=== PATIENT | male | born 1990 | race Caucasian/White ===

== ENCOUNTER 2016-12-16 09:11 | Emergency (ER) | payer OTHER ==
[~2016-12-16] VITALS: Ht 167.6 cm; Wt 70.3 kg
[2016-12-16 09:17] VITALS: BP 107/53
--- NOTE | 2016-12-16 09:20 | NUR ---
PT AMBULATED TO BED 4
--- NOTE | 2016-12-16 09:26 | NUR ---
PATIENT PRESENTS TO ED WITH LLQ ABD PAIN AND LEFT TESTICAL PAIN X 40 MIN WITH VOMITING X 1. PT STATES IT STARTED WHEN HE WOKE UP THIS MORNING .PAIN IS CONSTANT AND WORSENS WHEN HE LIE DOWN.SKIN IS PINK/WARM/DRY; AAOX4 WITH EVEN AND STEADY GAIT; LUNGS CLEAR BL; HR EVEN AND REGULAR; PT DENIES ANY FEVER, CP, SOB, OR COUGH AT THIS TIME; PATIENT STATES PAIN OF 10/10 AT THIS TIME;PATIENT POSITIONED FOR COMFORT; HOB ELEVATED; BEDRAILS UP X2; BED DOWN. ER MD AT BEDSIDE.
[2016-12-16] MEDS ORDERED: NACL 0.9% 1,000 ML IV SCH (09:31)
[2016-12-16] MEDS ORDERED: KETOROLAC 30 MG/ML VIAL IVP ONE (09:35)
[2016-12-16] MEDS ORDERED: ONDANSETRON 4 MG/2 ML VIAL IVP ONE (09:35)
--- NOTE | 2016-12-16 09:49 | NUR ---
PT AAOX4. NO ACUTE DISTRESS NOTED. PT WENT TO CT SCAN. ACCOMPANIED BY BUN ICER.
[2016-12-16] MEDS ORDERED: MORPHINE SULFATE 4 MG/ML SYR IVP ONE ×2 (10:05→10:55)
--- NOTE | 2016-12-16 10:05 | NUR ---
AAO, COPPERATIVE PT BACK FROM CT SCAN OF THE ABDOMEN VIA JOHNRLEWIS, STILL C/O CONSTANT, SHARP PAIN 06/17 ON THE ABDOMEN, DR LANGSTON NOTIFIED, ORDERING MORPHINE
--- NOTE | 2016-12-16 11:02 | NUR ---
AAO PT STILL C/O PAIN 06/17, DR LANGSTON NOTIFIED, ORDERED 2ND DOSE OF 4MG/ML MORPINE TO BE GIVEN IV
[2016-12-16 11:45] VITALS: BP 134/73
--- NOTE | 2016-12-16 11:45 | NUR ---
Patient discharged with v/s stable. Written and verbal after care instructions given and explained. Patient alert, oriented and verbalized understanding of instructions. Ambulatory with steady gait. All questions addressed prior to discharge. ID band removed. Patient advised to follow up with PMD. Rx of ZOFRAN, FLOMAX, MOTRIN, NORCO given. Patient educated on indication of medication including possible reaction and side effects. Opportunity to ask questions provided and answered.
== END 2016-12-16 11:45 | disposition home or self-care (01) ==
LOC: MED 09:11
DX: N20.0 Calculus of kidney (principal)
CPT/HCPCS: 36415; 74176; 80053; 81001; 83690; 85025; 96361; 96374; 96375; 96376; 99285; J1885; J2270; J2405; J7030

== ENCOUNTER 2016-12-17 18:56 | Emergency (ER) | payer OTHER ==
[~2016-12-17] VITALS: Ht 167.6 cm; Wt 70.3 kg
[2016-12-17 18:59] VITALS: BP 150/96
--- NOTE | 2016-12-17 19:06 | NUR ---
Patient to bed 08.
[2016-12-17] MEDS ORDERED: NACL 0.9% 1,000 ML IV ONE ×2 (19:21→20:55)
--- NOTE | 2016-12-17 19:23 | NUR ---
PT BIB MOTHER TO ED WITH C/O LEFT SIDED FLANK PAIN X1 DAY. PT WAS SEEN IN ED YESTERDAY. PT STATES NO MED HX. DENIES V/D; SKIN IS PINK/WARM/DRY; AAOX4 WITH EVEN AND STEADY GAIT; LUNGS CLEAR BL; HR EVEN AND REGULAR; PT DENIES ANY FEVER, CP, SOB, OR COUGH AT THIS TIME; PATIENT STATES PAIN OF 8/10 AT THIS TIME; VSS; PATIENT POSITIONED FOR COMFORT; HOB ELEVATED; BEDRAILS UP X2; BED DOWN. ER MD MADE AWARE OF PT STATUS.
[2016-12-17] MEDS ORDERED: KETOROLAC 30 MG/ML VIAL IVP ONE ×2 (19:25→22:05)
[2016-12-17] MEDS ORDERED: ONDANSETRON 4 MG/2 ML VIAL IVP ONE (19:25)
[2016-12-17] MEDS ORDERED: MORPHINE SULFATE 4 MG/ML SYR IVP ONE (20:55)
--- NOTE | 2016-12-17 21:40 | NUR ---
PT RESTING IN BED. NO SOB NOTED AT THIS TIME
[2016-12-17] MEDS ORDERED: PHENAZOPYRIDINE 100 MG TAB PO ONE (22:05)
[2016-12-17 22:30] VITALS: BP 128/84
--- NOTE | 2016-12-17 22:30 | NUR ---
Patient discharged with v/s stable. Written and verbal after care instructions given and explained. Patient alert, oriented and verbalized understanding of instructions. Ambulatory with steady gait. All questions addressed prior to discharge. ID band removed. Patient advised to follow up with PMD. Rx of PHENAZOPYRIDINE given. Patient educated on indication of medication including possible reaction and side effects. Opportunity to ask questions provided and answered.
== END 2016-12-17 22:30 | disposition home or self-care (01) ==
LOC: MED 18:56
DX: N20.1 Calculus of ureter (principal)
CPT/HCPCS: 36415; 80053; 81001; 83690; 85025; 96361; 96374; 96375; 99284; J1885; J2270; J2405; J7030

== ENCOUNTER 2019-08-14 17:20 | Emergency (ER) | payer BC, OTHER ==
[~2019-08-14] VITALS: Ht 167.6 cm; Wt 68.0 kg
[2019-08-14 17:55] VITALS: BP 153/95
--- NOTE | 2019-08-14 17:58 | NUR ---
TRIAGE COMPLETE OKAY TO WAIT IN LOBBY FOR BED IN ED.
--- NOTE | 2019-08-14 19:56 | NUR ---
29Y MALE PRESENTED TO ED C/O LT TESTICULAR INTERMITTENT PAIN 07/18 X4 DAYS. PAIN RADIATES TO LEFT SIDE OF LOWER ABDOMEN, AGGRIVATES WITH MOVEMENT AND FELT PAIN EVEN AT REST AND PRESSURE ON LT TESTICLE. PT REPORTED, FELT A SWELLING VEIN BEHIND HIS LT TESTICLE, DENIES ANY INJURY, PT REPORTED TAKING ADVIL ON PREVIOUS DAYS WITH MINIMAL RELIEF. EDMD MADE AWARE WILL CONTINUE TO MONITOR CLOSELY. NO PMH
[2019-08-14 20:32] VITALS: BP 148/90
--- NOTE | 2019-08-14 20:32 | NUR ---
PATIENT DISCHARGED BY DR. MOREIRA. Written and verbal after care instructions given and explained. Ambulatory with steady gait. All questions addressed prior to discharge. ID band removed. Patient advised by Dr. Moreira to follow up with PMD. Rx OF CIPRO 500MG AND NAPROSYN 500MG given. Patient educated on indication of medication including possible reaction and side effects. Opportunity to ask questions provided and answered.
== END 2019-08-14 20:32 | disposition home or self-care (01) ==
LOC: MED 17:20
DX: N45.1 Epididymitis (principal); Z87.442 Personal history of urinary calculi
CPT/HCPCS: 99283

== ENCOUNTER 2020-08-05 22:20 | Emergency (ER) | payer BC, OTHER ==
[~2020-08-05] VITALS: Ht 167.6 cm; Wt 65.8 kg
[2020-08-05 22:47] VITALS: BP 129/75
--- NOTE | 2020-08-05 22:50 | NUR ---
To ED bed 05
--- NOTE | 2020-08-05 22:54 | NUR ---
PT AMBULATED FROM RESTROOM TO BED 5 WITH STEADY GAIT. UA PROVIDED.
--- NOTE | 2020-08-05 23:05 | NUR ---
PT bib self C/O intermitent RT flank pain that radiates to RLQ and groin x . PT reports pain started as sharp pain and has since turned into soreness. PT reports RT testicle swelling x months that has improved and has seen urologist who diagnosed PT with "mild epididmytis" PMH:kidney stones
--- NOTE | 2020-08-06 00:14 | NUR ---
ERMD AT BEDSIDE.
[2020-08-06] MEDS ORDERED: KETOROLAC 15 MG/ML VIAL IM ONE (00:25)
--- NOTE | 2020-08-06 00:34 | NUR ---
lab at bedside
[2020-08-06 00:40] LABS: BASOPHILS # (AUTO) 0.1 K/uL (0.00-0.22); EOSINOPHILS # (AUTO) 0.2 K/uL (0-0.4); EOSINOPHILS % (AUTO) 2.3 % (0.0-4.0); HEMATOCRIT 44.9 % (36-52); HEMOGLOBIN 14.8 g/dL (12.0-18.0); LYMPHOCYTES # (AUTO) 1.8 K/uL (2.0-11.5); LYMPHOCYTES % (AUTO) 26.7 % (20.5-51.1); MEAN CORPUSCULAR HEMOGLOBIN 28 pg (27-31); MEAN CORPUSCULAR HGB CONC 33 g/dL (33-37); MEAN CORPUSCULAR VOLUME 84.3 fL (80-94); MONOCYTES # (AUTO) 0.8 K/uL (0.8-1.0); MONOCYTES % (AUTO) 11.2 % (1.7-9.3); NEUTROPHILS % (AUTO) 58.8 % (42.2-75.2); PLATELET COUNT (AUTO) 227 K/uL (140-450); RED BLOOD CELL COUNT(AUTO) 5.33 MIL/uL (4.20-6.10); WHITE BLOOD COUNT (AUTO) 6.8 K/uL (4.8-10.8)
[2020-08-06 00:53] LABS: ALBUMIN 4.3 g/dL (3.4-5.0); ANION GAP 11.4 (8-16); CARBON DIOXIDE 28.6 mmol/L (21-32); CREATININE 1.2 mg/dL (0.6-1.3); TOTAL BILIRUBIN 0.4 mg/dL (0.0-1.0)
--- NOTE | 2020-08-06 01:22 | NUR ---
PT to CT at this time
--- NOTE | 2020-08-06 01:27 | NUR ---
PT RETURN FROM CT
[2020-08-06 02:27] VITALS: BP 122/80
--- NOTE | 2020-08-06 02:28 | NUR ---
Patient discharged with v/s stable. Written and verbal after care instructions given and explained. Patient verbalized understanding. Ambulatory with steady gait. All questions addressed prior to discharge. Advised to follow up with PMD.
== END 2020-08-06 02:28 | disposition home or self-care (01) ==
LOC: MED 22:20
DX: R10.31 Right lower quadrant pain (principal); N20.0 Calculus of kidney
CPT/HCPCS: 36415; 74176; 80053; 81002; 85025; 96372; 99284; J1885